=== PATIENT | male | born 1960 | race Caucasian/White ===

== ENCOUNTER 2024-11-20 13:58 | Outpatient (AMB) | payer OTHER, SELFPAY ==
[2024-11-20 14:06] VITALS: BP 122/76; PULSE 82; O2SAT 97; BMI 33.2
--- NOTE | 2024-11-20 14:06 | A.OFFVIS_ITS ---
Vital Signs 11/20/24 14:06 Height 5 ft 11 in Weight 238 lb 1.588 oz BMI 33.2 BP 122/76 Blood Pressure Location Rt brachial Position Sitting Pulse 82 Pulse Source Pulse Oximeter Pulse Oximetry (%) 97 Oxygen Delivery Method Room Air Intake Visit Reasons: Type 2 DM Intake Note: New patient externally referred by PCP for Diabetes management. Last Diabetic eye exam was on: 6 months ago Last Podiatry exam was on: Patient does not see a Lab Support Service Tech Most recent HbA1c: 6.6%, 11/17/2024 [facility] Random Glucose- 83 mg/dL, Today Back Roll Lathe Operator Required: No Accompanied by: Self / Same As Patient Allergies No Known Allergies Allergy (Verified 11/20/24 14:10) HPI Comments Details: This is a 64-year-old male with a past medical history of anxiety with depression, BPH, hypertension, hyperlipidemia, insomnia, obesity and type 2 diabetes presenting for an initial consult for diabetic management. He was diagnosed with prediabetes 6-7 years ago, and it progressed over time. His sister has prediabetes. His other sister has type II diabetes. I reviewed today's libre2 download: CGM active: 82% Average glucose: 128 Very high (>250): 1% High (181-250): 9% Target range (70-180): 90% Low (55-69): 0% Very low (<55): 0% Hemoglobin a1c 6.6% 11/17/2024 Current medication regimen: Glipizide ER 5 mg daily, Januvia 50 mg, metformin extended release a 1000 mg BID He received notification for his insurance that they will no longer cover Januvia. Ozempic discontinued due to stomach upset. Trulicity discontinued due to stomach upset. Compliance issues: none Diet: Breakfast-eggs, omelette with veggies, 1 piece of toast, low carb/low sugar cereal without milk, coffee with sugar free creamer Lunch-soup with vegetables, water Dinner- out to dinner twice per week, pasta, steak, salads, vegetables, seafood, Snacks/desserts: applesauce, sugar free wafer, yogurt No juice or soda Nonsmoker. Drinks 4 beers per week. Walks dog for exercise every other day. Hypoglycemia symptoms: 2 episodes in the last month. [place] shaky. Hyperglycemia symptoms: Fatigue in the past Eye exam: due-he will call to schedule Microvascular complications: Mild neuropathy Macrovascular complications: None Hypertension: treated with amlodipine and lisinopril Hyperlipidemia: treated with atorvastatin The patient mentions that he discontinued tamsulosin because it did not help with nocturia related to BPH. He does not have a urologist currently, and he would like a referral to [facility]. This was completed for the patient today. ROS: Constitutional: No unexplained weight loss, fever, chills, fatigue or night sweats. Eyes: No vision changes, blurry vision, double vision Respiratory: No shortness of breath Cardiovascular: No chest pain Gastrointestinal: No anorexia, nausea, vomiting or diarrhea. No abdominal pain Genitourinary: No dysuria and hematuria. Neurologic: No numbness or tingling in the extremities. Skin: No open wounds Endocrine: No cold or heat intolerance. No polydipsia. Physical exam: Constitutional: Alert, in no distress. Eyes: Pupils are equal, round and reactive to light. Extraocular muscles intact. Neck: Supple, Full range of motion. No lymphadenopathy. No palpable thyroid masses. Respiratory: Clear to auscultation. Cardiovascular: S1 S2 regular. No murmurs Right foot: Warm and well perfused. No clubbing, cyanosis or edema. Palpable DP pulse. Mildly Decreased vibratory sensation. Intact sensation to monofilament. Left foot: Warm and well perfused. No clubbing, cyanosis or edema. Palpable DP pulse. Mildly Decreased vibratory sensation. Intact sensation to monofilament. [facility] Medical History (Updated 11/20/24 @ 15:12 by NENO Crook) Obesity Hyperlipidemia Hypertension BPH (benign prostatic hyperplasia) Controlled type 2 diabetes mellitus Surgical History (Updated 11/19/24 @ 17:10 by LAYLA Arias) History of colonoscopy Family History (Updated 11/19/24 @ 17:11 by LAYLA Arias) Father Cancer of unknown origin Social History (Updated 11/19/24 @ 17:11 by Sahbnam Roberts Abraham) Alcohol intake: current Patient Tobacco Use Status: Never used Tobacco Physical Exam Vital Signs: BMI result Body Mass Index 33.2 Results Reviewed Results Reviewed: Reviewed external labs dated 11/17/2024 Creatinine 0.62 GFR 107 AST 28 ALT 25 Total cholesterol 199 Triglycerides 140 HDL 52 LDL 122 Hemoglobin A1c 6.6% TSH 1.130 Creatinine, urine 76.6 Albumin, urine 19.5 Albumin/creatinine ratio 25 Assessment & Plan Assessment & Plan (1) Controlled type 2 diabetes mellitus: Code(s): E11.9 - Type 2 diabetes mellitus without complications Category: Medical Qualifiers: Diabetes mellitus care home insulin use: without termination clerk use Plan: In summary this is a 64-year-old male with controlled type 2 diabetes with mild neuropathy. Discussed pathophysiology of Type II Diabetes Mellitus with the patient in detail.? I explained the termination clerk risks and complications associated with uncontrolled diabetes including nephropathy, neuropathy, peripheral vascular disease, retinopathy, increased risk of heart disease and stroke.? Discussed lifestyle modification with the patient. Recommended 30 minutes of moderately vigorous exercise 5 days per week to promote weight loss. He declines referral to the videotape editor and dietitian. Patient was informed Januvia is no longer covered by insurance. Stop Januvia. He will try Mounjaro 2.5 mg weekly. He denies contraindications to the medications. We reviewed potential side effects since he had side effects on GLP 1 medication in the past. If he is unable to tolerate it he will notify the office. Continue glipizide 5 mg ER for now. Ultimately our goal will be to titrate Mounjaro in order to stop glipizide. Continue metformin 1000 mg twice daily. If you experience low blood sugar (<70), treat this by eating a chewable fruit candy like skittles or jelly beans (about 8 pieces), 4 ounces (1/2 cup) of fruit juice (not diet), 1 tablespoon of honey or 4 glucose tablets. If your blood sugar is under 50, take double the amount of one of the above. Recheck your blood sugar in 15 minutes. Odimax sensors sent to pharmacy for the patient. He will use the Odimax michael on his phone. Follow up in 4 weeks for diabetes. (2) Hypertension: Code(s): I10 - Essential (primary) hypertension Category: Medical Qualifiers: Hypertension type: primary hypertension Qualified Code(s): I10 - Essential (primary) hypertension Plan: Well-controlled. Continue current regimen. Recommended low-sodium diet and avoidance of caffeine. (3) Hyperlipidemia: Code(s): E78.5 - Hyperlipidemia, unspecified Category: Medical Qualifiers: Hyperlipidemia type: pure hypercholesterolemia Qualified Code(s): E78.0 0 - Pure hypercholesterolemia, unspecified Plan: LDL is above goal. Patient is actively working on lifestyle modifications. Patient says he is compliant with atorvastatin 80 mg daily. Recommended he discuss this with his primary care team and consider rechecking in 2-3 months. If his LDL remains above goal he could consider adding Zetia or switching to rosuvastatin. Plan Follow up in 4 weeks for type 2 diabetes. Orders: Referrals Urology Referral N40.0 - Benign prostatic hyperplasia without lower urinary tract symptoms Medications: New glucose (Dex4 Glucose) until blood sugar is >70 16 grams (4 x 4 gram) PO Q15M PRN 10 tabs 3RF hypoglycemia (hipoglucemia) tirzepatide (Mounjaro) for 4 weeks 2.5 mg (0.5 mL) subcut QWEEK 2 mL 1RF blood-glucose sensor (Phosphate TherapeuticsStyle Jaja 3 Sensor device) apply new sensor every 14 days 2 ea 11RF E11.9 - Type 2 diabetes mellitus without complications Patient Instructions: Stop Januvia. Start Mounjaro 2.5 mg weekly. Continue Metformin 1000 mg twice daily. Continue Glipizide 5 mg daily. If you experience low blood sugar (<70), treat this by eating a chewable fruit candy like skittles or jelly beans (about 8 pieces), 4 ounces (1/2 cup) of fruit juice (not diet), 1 tablespoon of honey or 4 glucose tablets. If your blood sugar is under 50, take double the amount of one of the above. Recheck your blood sugar in 15 minutes. Libre3 sensors were sent to the pharmacy and may require a prior authorization. Coding Level of Care Code New Pt Level 5 (17974) Complex EM visit Add On G2211 Diagnoses Controlled type 2 diabetes mellitus E11.9 Diabetes mellitus care home insulin use: without care home use Primary hypertension I10 Hypertension type: primary hypertension Pure hypercholesterolemia E78.00 Hyperlipidemia type: pure hypercholesterolemia Time Spent (min) 70 Comment Chart review, direct patient care, completing documentation
[2024-11-20 14:26] LABS: Glucose, Whole Blood 84 mg/dL (60-115)
--- OUTSIDE RECORDS SUMMARY | 2024-11-20 16:11 | XMS_ITS | Clinical Summary ---
Author Organization [facility] Address [address] [place] [address] Care Team Providers Care Director Business Development Name Role Phone Pcp, No Primary Care Provider Unavailabl e Allergies No known active allergies Medications Medication Sig Dispensed Refills Start Date End Date Status amLODIPine (NORVASC) 10 MG tablet Take 10 mg by mouth daily. 1 11/23/2015 Active atorvastatin (LIPITOR) 40 MG tablet Take 40 mg by mouth daily. 1 11/23/2015 Active citalopram (CeleXA) 20 MG tablet Take 30 mg by mouth daily. 1 11/23/2015 Active hydrochlorothiazide (HYDRODIURIL) 50 MG tablet Take 50 mg by mouth daily. 1 11/05/2015 Active lisinopril (PRINIVIL,ZeSTRIL) 40 MG tablet Take 80 mg by mouth daily. 1 11/23/2015 Active Active Problems Problem Noted Date Diagnosed Date Essential hypertension 01/11/2016 Hyperlipidemia 01/11/2016 Depression 01/11/2016 Pre-employment examination 01/11/2016 DAMIR on CPAP 01/11/2016 Social History Tobacco Use Types Packs/Day Years Used Date Smoking Tobacco: Never Smokeless Tobacco: Never Alcohol Use Standard Drinks/Week Comments Yes 2 (1 standard drink = 0.6 oz pur e alcohol) Sex and Gender Information Value Date Recorded Sex Assigned at Not on file Gender Identity Not on file Sexual Orientation Not on file Last Filed Vital Signs Vital Sign Reading Time Taken Comments Blood Pressure 110/60 01/11/2016 9:21 AM EDT Pulse 64 01/11/2016 9:21 AM EDT Temperature - - Respiratory Rate 12 01/11/2016 9:21 AM EDT Oxygen Saturation - - Inhaled Oxygen Concentration - - Weight 138 kg (305 lb) 01/11/2016 9:21 AM EDT Height 180.3 cm (5' 11 ) 01/11/2016 9:21 AM EDT Body Mass Index 42.54 01/11/2016 9:21 AM EDT Plan of Treatment Health Maintenance Due Date Last Done Comments Hepatitis C Virus Screening 1960 HIV Screening 02/09/1973 DTaP/Tdap/Td Vaccines (1 - Tdap) 02/09/1979 Pneumococcal Vaccines 50+ (1 of 1 - PCV) 02/09/2010 Zoster (Shingles) Vaccine (1 of 2) 02/09/2010 COVID-19 Vaccine ( - 2023-2 5 season) 2024 RSV Vaccine 60 years and old er and Patients (1 - 1-dose 75+ series) 02/09/2035 Hepatitis B Vaccines Aged Out No long er eligible based on patient's age to complete this topic Pneumococcal Vaccine: Pediat magdalena (0-5 Years) and At-Risk Patients (6 to 49 Years) Aged Out No longer eligible b ased on patient's age to complete this topic Care Teams Director Business Development Relationship Specialty Start Date End Date Pcp, No PCP - General General Medicine 01/06/16
--- OUTSIDE RECORDS SUMMARY | 2024-11-20 16:11 | XMS_ITS | Encounter Summary ---
Author Organization [facility] Address [address] [place] [address] Care Team Providers Care Sound Ranging Crewmember Name Role Phone Pcp, No Primary Care Provider Unavailabl e Encounter Details Date Type Department Care Team (Late st Contact Info) Description 01/11/2016 Scanned Document [address] [id number] Provider, Generic Social History Tobacco Use Types Packs/Day Years Used Date Smoking Tobacco: Never Smokeless Tobacco: Never Alcohol Use Standard Drinks/Week Comments Yes 2 (1 standard drink = 0.6 oz pur e alcohol) Sex and Gender Information Value Date Recorded Sex Assigned at Not on file Gender Identity Not on file Sexual Orientation Not on file documented as of this encounter Plan of Treatment Not on file documented as of this encounter Visit Diagnoses Not on filedocumented in this encounter Care Teams Sound Ranging Crewmember Relationship Specialty Start Date End Date Pcp, No PCP - General General Medicine 01/06/16 documented as of this encounter
== END 2024-11-20 15:01 | disposition home or self-care (01) ==
PROVIDERS: PCP Internal Medicine; Visit Provider Physician Assistant Medical
DX: E11.9 Type 2 diabetes mellitus without complications (principal); I10 Essential (primary) hypertension; E78.00 Pure hypercholesterolemia, unspecified

== ENCOUNTER → 2024-11-20 13:58 | Outpatient (BNVA) | payer OTHER, SELFPAY | PROVIDERS: PCP Internal Medicine; Visit Provider Physician Assistant Medical | DX: E11.40 Type 2 diabetes mellitus with diabetic neuropathy, unspecified (principal); I10 Essential (primary) hypertension; E78.00 Pure hypercholesterolemia, unspecified; N40.0 Benign prostatic hyperplasia without lower urinary tract symptoms; Z79.84 Long term (current) use of oral hypoglycemic drugs; Z79.899 Other long term (current) drug therapy | CPT/HCPCS: 82947 ==

== ENCOUNTER 2024-12-18 14:25 | Outpatient (AMB) | payer OTHER, SELFPAY ==
[2024-12-18 14:30] VITALS: PULSE 74; O2SAT 95; BMI 31.7
--- NOTE | 2024-12-18 14:30 | A.OFFVIS_ITS ---
Vital Signs 12/18/24 14:30 Height 5 ft 11 in Weight 227 lb 1.218 oz BMI 31.7 Blood Pressure Location Rt brachial Position Sitting Pulse 74 Pulse Source Pulse Oximeter Pulse Oximetry (%) 95 Oxygen Delivery Method Room Air Intake Visit Reasons: Type II diabetes Intake Note: Patient presents today for a follow-up on Type 2 Diabetes Mellitus: Last Diabetic eye exam was on: 6 months ago Last Podiatry exam was on: Patient does not see a Primary Health Organisation Manager Most recent HbA1c: 6.6%, 11/17/2024 [facility] Random Glucose- 136 mg/dL, Today Seniour Insight Manager Required: No Accompanied by: Self / Same As Patient Allergies No Known Allergies Allergy (Verified 11/20/24 14:10) HPI Comments Details: This is a 64-year-old male with a past medical history of anxiety with depression, BPH, hypertension, hyperlipidemia, insomnia, obesity and type 2 diabetes presenting for diabetic management. He was diagnosed with prediabetes 6-7 years ago, and it progressed over time. His sister has prediabetes. His other sister has type II diabetes. Reviewed Dexcom data GMI 6.3% Average glucose 126 mg/dL Coefficient of variation 24.9% 0% very high 7% high 93% in range No hypoglycemia. Hemoglobin a1c 6.6% 11/17/2024 Current medication regimen: Mounjaro 2.5 mg daily metformin extended release a 1000 mg BID Previous medication: Glipizide and Januvia discontinued after he started Mounjaro. Ozempic discontinued due to stomach upset. Trulicity discontinued due to stomach upset. Compliance issues: none Diet: Breakfast-eggs, omelette with veggies, 1 piece of toast, low carb/low sugar cereal without milk, coffee with sugar free creamer Lunch-soup with vegetables, water Dinner- out to dinner twice per week, pasta, steak, salads, vegetables, seafood, Snacks/desserts: applesauce, sugar free wafer, yogurt No juice or soda Nonsmoker. Drinks 4 beers per week. Walks dog for exercise every other day. Hypoglycemia symptoms: No hypoglycemia since he stopped glipizide. Hyperglycemia symptoms: None Eye exam: due-he will call to schedule Microvascular complications: Mild neuropathy Macrovascular complications: None Hypertension: treated with amlodipine and lisinopril Hyperlipidemia: treated with atorvastatin ROS: Constitutional: No unexplained weight loss, fever, chills, fatigue or night sweats. Eyes: No vision changes, blurry vision, double vision Respiratory: No shortness of breath Cardiovascular: No chest pain Gastrointestinal: No anorexia, nausea, vomiting or diarrhea. No abdominal pain Genitourinary: No dysuria and hematuria. Neurologic: No numbness or tingling in the extremities. Skin: No open wounds Endocrine: No cold or heat intolerance. No polydipsia. Physical exam: Constitutional: Alert, in no distress. Eyes: Pupils are equal, round and reactive to light. Extraocular muscles intact. Respiratory: Clear to auscultation. Cardiovascular: S1 S2 regular. No murmurs PFSH Medical History (Updated 12/18/24 @ 15:16 by NENO Crook) Obesity Hyperlipidemia Hypertension BPH (benign prostatic hyperplasia) Controlled type 2 diabetes mellitus Surgical History (Updated 11/19/24 @ 17:10 by LAYLA Arias) History of colonoscopy Family History (Updated 11/19/24 @ 17:11 by LAYLA Arias) Father Cancer of unknown origin Social History (Updated 11/19/24 @ 17:11 by LAYLA Arisa) Alcohol intake: current Patient Tobacco Use Status: Never used Tobacco Physical Exam Vital Signs: Last Vital Signs Pulse 74 12/18/24 14:30 Pulse Ox 95 12/18/24 14:30 Oxygen Delivery Method Room Air 12/18/24 14:30 BMI result Body Mass Index 31.7 Office Procedures Glucose Monitoring Details Details: See [facility] [address] - Glucose monitoring, continuous-physician I&R Procedure code (CPT) selection complete Results Reviewed Results Reviewed: Reviewed external labs dated 11/17/2024 Creatinine 0.62 GFR 107 AST 28 ALT 25 Total cholesterol 199 Triglycerides 140 HDL 52 LDL 122 Hemoglobin A1c 6.6% TSH 1.130 Creatinine, urine 76.6 Albumin, urine 19.5 Albumin/creatinine ratio 25 Assessment & Plan Assessment & Plan (1) Controlled type 2 diabetes mellitus: Code(s): E11.9 - Type 2 diabetes mellitus without complications Category: Medical Qualifiers: Diabetes mellitus residential insulin use: without residential use Diabetes mellitus complication status: with neurologic complications Diabetes mellitus complication detail: with polyneuropathy Qualified Code(s): E11.42 - Type 2 diabetes mellitus with diabetic polyneuropathy Plan: In summary this is a 64-year-old male with controlled type 2 diabetes with mild neuropathy. Discussed pathophysiology of Type II Diabetes Mellitus with the patient in detail.? I explained the residential risks and complications associated with uncontrolled diabetes including nephropathy, neuropathy, peripheral vascular disease, retinopathy, increased risk of heart disease and stroke.? Discussed lifestyle modification with the patient. Recommended 30 minutes of moderately vigorous exercise 5 days per week to promote weight loss. Offer trial increase of Mounjaro to 5 mg weekly and decreasing metformin to 1500 mg a day. He defers for now, but he will consider this in the future. Continue Mounjaro 2.5 mg weekly and metformin extended release 1000 mg twice daily. If you experience low blood sugar (<70), treat this by eating a chewable fruit candy like skittles or jelly beans (about 8 pieces), 4 ounces (1/2 cup) of fruit juice (not diet), 1 tablespoon of honey or 4 glucose tablets. If your blood sugar is under 55, take double the amount of one of the above. Recheck your blood sugar in 15 minutes. Follow up in 3 months for type 2 diabetes (2) Hyperlipidemia: Code(s): E78.5 - Hyperlipidemia, unspecified Category: Medical Qualifiers: Hyperlipidemia type: pure hypercholesterolemia Qualified Code(s): E78.00 - Pure hypercholesterolemia, unspecified Plan: LDL is above goal. Patient is actively working on lifestyle modifications. Patient says he is compliant with atorvastatin 80 mg daily. Recheck in 2-3 months. If his LDL remains above goal he could consider adding Zetia or switching to rosuvastatin. Orders: Orders Basic Metabolic Panel 01/21/25 E11.9 - Type 2 diabetes mellitus without complications Hemoglobin A1c 01/21/25 E11.9 - Type 2 diabetes mellitus without complications Lipid Panel 01/21/25 E78.5 - Hyperlipidemia, unspecified Vitamin B12 01/21/25 E11.9 - Type 2 diabetes mellitus without complications, Z91.89 - Other specified personal risk factors, not elsewhere classified AMB Glucose Monitoring Today E11.9 - Type 2 diabetes mellitus without complications Coding Level of Care Code Est Pt Level 4 (10572) Diagnoses Controlled type 2 diabetes mellitus with diabetic polyneuropathy, without long- term current use of insulin E11.42 Diabetes mellitus residential insulin use: without residential use Diabetes mellitus complication status: with neurologic complications Diabetes mellitus complication detail: with polyneuropathy Pure hypercholesterolemia E78.00 Hyperlipidemia type: pure hypercholesterolemia CPT Codes Details - CPT: 72597 - Glucose monitoring, continuous-physician I&R ([id number])
[2024-12-18 15:04] LABS: Glucose, Whole Blood 136 mg/dL (60-115)
== END 2024-12-18 15:11 | disposition home or self-care (01) ==
LOC: HO.ENCR 14:26
PROVIDERS: PCP Internal Medicine; Visit Provider Physician Assistant Medical
DX: E11.42 Type 2 diabetes mellitus with diabetic polyneuropathy (principal); E78.00 Pure hypercholesterolemia, unspecified

== ENCOUNTER → 2024-12-18 14:25 | Outpatient (BNVA) | payer OTHER, SELFPAY | PROVIDERS: PCP Internal Medicine; Visit Provider Physician Assistant Medical | DX: E11.42 Type 2 diabetes mellitus with diabetic polyneuropathy (principal); I10 Essential (primary) hypertension; E78.00 Pure hypercholesterolemia, unspecified; Z79.84 Long term (current) use of oral hypoglycemic drugs; Z91.89 Other specified personal risk factors, not elsewhere classified; Z79.899 Other long term (current) drug therapy | CPT/HCPCS: 82947 ==

== ENCOUNTER 2025-01-14 14:34 | Outpatient (AMB) | payer OTHER, SELFPAY ==
--- NOTE | 2025-01-14 14:51 | A.OFFVIS_ITS ---
Intake Visit Reasons: BPH Intake Note: New Patient presents for initial visit for BPH and urinary frequency Urology Medications: none Blood Thinner: none PVR: 76ml's Finisher Special Stocks Required: No Accompanied by: Self / Same As Patient Allergies No Known Allergies Allergy (Verified 01/14/25 16:50) Medication List - Last Reconciled 01/14/25 by TAWNY Sharp- amlodipine 10 mg PO DAILY atorvastatin 80 mg PO DAILY blood-glucose sensor (Dexcom G7 Sensor device) apply new sensor every 10 days as directed citalopram 10 mg PO DAILY glucose (Dex4 Glucose) 16 grams (4 x 4 gram) PO Q15M PRN lisinopril 40 mg PO DAILY metformin ER 1,000 mg PO BID tirzepatide (Mounjaro) 2.5 mg (0.5 mL) subcut QWEEK HPI Comments Details: Danny is a very pleasant 64-year-old male patient of Dr. Fausto Benitez. He has a past medical history of obesity, hypertension, type 2 diabetes, hyperlipidemia and BPH. He presents to the office today as a new patient for ongoing lower urinary tract symptoms he has been experiencing. In discussion with the patient today he reports a previous urological history with Dr. Annamarie Blackwell for many years as he has had a longstanding history of nephrolithiasis requiring 1 past surgical intervention however is unsure as to what kidney. He reports noting over the last few months he has been experiencing issues with nocturia at which time he started himself on OTC prostate health medication and feels this has been helpful he reports symptoms of nocturia have decreased to approximately 2 times per night. He also reports at times feeling of incomplete bladder emptying. He otherwise denies urinary urgency, urinary frequency, incontinence, hematuria, dysuria, foul smelling urine, changes to urinary stream, flank pain, fever, and or chills. He reports feeling ever since he has started his DEX-com for his diabetes this has been helpful in maintaining better sugar control which has overall helped him. In office urinalysis results reviewed with the patient today. PVR 76 mL. He discusses upcoming trip to [facility]. We discussed at length potential causes of lower urinary tract symptoms patient was experiencing as well as further treatment options and risks and benefits of these treatment options. All questions were answered. He otherwise offers no other issues or concerns at this time. Discussion Notes During the consultation, I discussed with the patient the potential diagnosis of Benign Prostatic Hyperplasia (BPH) and its impact on urinary symptoms. I recommended obtaining a baseline imaging study, specifically an ultrasound of the kidneys and bladder to assess the size of the prostate and examine the kidneys given the patient?s history of nephrolithiasis. I also proposed conducting blood work to monitor general health and evaluate prostate-specific antigens. The patient was informed about the potential need for medication if prostate enlargement continues and alternative surgical interventions if symptoms worsen. I emphasized a proactive approach to manage BPH and avoid complications. The patient agreed to the planned studies and follow-up in three months. We also discussed his upcoming travel plans to [facility] and agreed to align future appointments accordingly. Plan The patient's management will involve an ultrasound to evaluate the extent of prostate enlargement and assess renal health, especially given his past kidney stone history. Blood work will be part of this assessment to ensure a comprehensive understanding of his urological health. The use of current prostate medication will continue unless further enlargement is detected, necessitating an adapted approach, such as surgical intervention. Follow-up arranged in three months will allow for results discussion and treatment adjustment. PENDING SALE TO [facility] Medical History Obesity Hyperlipidemia Hypertension BPH (benign prostatic hyperplasia) Controlled type 2 diabetes mellitus Surgical History History of colonoscopy Family History Father Cancer of unknown origin Social History Alcohol intake: current Patient Tobacco Use Status: Never used Tobacco Review of Systems Const All systems reviewed & are unremarkable except as noted in HPI and below Physical Exam Const General: cooperative, healthy appearing, comfortable, no acute distress, well developed, alert and awake Orientation/consciousness: patient oriented x3 Limitations: no limitations HEENT Head: Yes normal to inspection, Yes normocephalic and Yes atraumatic Ears: hearing grossly normal bilaterally Eyes General: appearance normal, both eyes and all related structures Neck Neck: Yes normal visual inspection and Yes trachea midline Chest Chest palpation & inspection: normal inspection of the chest Resp Effort & Inspection: normal respiratory effort and able to speak in complete sentences Cardio Rate: regular rate GI Inspection: Yes normal to inspection General: Yes no CVA tenderness Back/Spine/Pelvis Back: no CVA tenderness Skin General skin exam: no rashes or lesions noted Neuro General: patient oriented x3 Extrem General: Yes normal to inspection Psych Appearance: grossly normal and well kempt Mental Status: mental status grossly normal Speech and movement: Normal speech and movement present and Clear speech present Affect: normal affect Attitude: cooperative Thought process: Normal thought process present Thought content: Normal thought content present Insight: Fair insight present (Psych) Judgement: Fair judgement present (Psych) Office Procedures Post Void Residual Post Residual Void Post Void Residual (PVR): 76 [id number] Void Residual by ultrasound Results AMB Urinalysis, Automated UA Leukoctes 0 Roshni/uL Last Edit by [employer] on 01/14/25 15:06 UA Nitrite Last Edit by [employer] on 01/14/25 15:06 UA Urobilinogen 0.2 mg/dL Last Edit by [employer] on 01/14/25 15:06 UA Protein 15 mg/dL Last Edit by [employer] on 01/14/25 15:06 UA pH 6.5 Last Edit by [employer] on 01/14/25 15:06 UA Blood 0 Edy/uL Last Edit by [employer] on 01/14/25 15:06 UA Specific Kingsbury 1.015 Last Edit by [employer] on 01/14/25 15:06 UA Ketone Last Edit by [employer] on 01/14/25 15:06 UA Bilirubin 0 mg/dL Last Edit by [employer] on 01/14/25 15:06 UA Glucose 0 mg/dL Last Edit by [employer] on 01/14/25 15:06 Results Reviewed Results Reviewed: Laboratory Last Values Urine pH (Auto) 6.5 01/14/25 15:05 Specific [place] (Auto) 1.015 01/14/25 15:05 Urine Protein (Auto) 15 mg/dL 01/14/25 15:05 Glucose (UA)(Auto) 0 mg/dL 01/14/25 15:05 Urine Blood (Auto) 0 Edy/uL 01/14/25 15:05 Urine Bilirubin (Auto) 0 mg/dL 01/14/25 15:05 Urine Urobilinogen (Auto) 0.2 mg/dL 01/14/25 15:05 Leukocyte Esterase (Auto) 0 Roshni/uL 01/14/25 15:05 Assessment & Plan Assessment & Plan (1) BPH (benign prostatic hyperplasia): Code(s): N40.0 - Benign prostatic hyperplasia without lower urinary tract symptoms Category: Medical (2) Nocturia: Code(s): R35.1 - Nocturia Category: Medical (3) Nephrolithiasis: Code(s): N20.0 - Calculus of kidney Category: Medical Plan In office urinalysis results reviewed with the patient today; as noted above. PVR 74 mL. We discussed obtaining retroperitoneal ultrasound for further assessment evaluation. We discussed obtaining PSA for further assessment evaluation. We discussed at length potential causes of lower urinary tract symptoms patient was experiencing as well as treatment options and risks and benefits of these treatment options. We discussed importance of management and diabetes for improvement in urological issues as well as overall health and well being. We discussed importance of limiting fluids 2-3 hours prior to bed to decrease episodes of nocturia. We discussed bladder triggers/irritants. Follow-up in 3 months with imaging, labs, and PVR; or sooner with any issues, concerns, and or questions. Orders: Orders US retroperitoneal comp Today N40.0 - Benign prostatic hyperplasia without lower urinary tract symptoms, R35.1 - Nocturia Prostate Specific Antigen Today N40.0 - Benign prostatic hyperplasia without lower urinary tract symptoms, R35.1 - Nocturia AMB Urinalysis Automated Today Z13.9 - Encounter for screening, unspecified AMB Post Void Residual by ultrasound Today N40.0 - Benign prostatic hyperplasia without lower urinary tract symptoms Patient Instructions: The patient had an opportunity to ask questions regarding the treatment plan. All questions were answered. Physical exam, labs, and imaging were discussed and reviewed in detail. As well as risks, benefits, and discussion of treatment choices. No major barriers to understanding were identified. The patient e xpressed understanding and agreement with the above treatment plan. The patient was made aware they should contact our office by phone for worsening of their current condition, the appearance of new symptoms, or with any questions or concerns. Compliance is encouraged with any medications and follow up testing that is ordered. It is a privilege to be allowed the opportunity to participate in? your urological care.? Again, if you have any questions or concerns If you have any questions or concerns please do not hesitate to contact me. The office is [phone]. This note is constructed using voice recognition software. While every effort has been made to ensure accuracy electric meter repairer helper errors may have been included. Yours sincerely, VALERIA Sharp Coding Level of Care Code New Pt Level 3 (82669) Diagnoses BPH (benign prostatic hyperplasia) N40.0 Nocturia R35.1 Nephrolithiasis N20.0 CPT Codes Post Residual Void - PVR CPT Code: 28537-Szdw Void Residual by ultrasound ([id number])
--- OUTSIDE RECORDS SUMMARY | 2025-01-14 17:11 | XMS_ITS | Clinical Summary ---
Author Organization Formerly [facility] Address [address] [place] [address] Care Team Providers Care Epic Manager Name Role Phone Pcp, No Primary Care Provider Unavailabl e Allergies No known active allergies Medications amLODIPine (NORVASC) 10 MG tablet Take 10 mg by mouth daily. 1 11/23/2015 Active atorvastatin (LIPITOR) 40 MG tablet Take 40 mg by mouth daily. 1 11/23/2015 Active citalopram (CeleXA) 20 MG tablet Take 30 mg by mouth daily. 1 11/23/2015 Active hydrochlorothiaz gio (HYDRODIURIL) 50 MG tablet Take 50 mg by mouth daily. 1 11/05/2015 Active lisinopril (PRINIVIL,ZeSTRI L) 40 MG tablet Take 80 mg by [...] Recorded Sex Assigned at Not on file Legal Sex Male 9:11 AM EDT Gender Identity Not on file Sexual Orientation [...] age to complete this topic Care Teams Epic Manager Relationship Specialty Start Date End Date Pcp, No PCP - General General Medicine 01/06/16
--- OUTSIDE RECORDS SUMMARY | 2025-01-14 17:11 | XMS_ITS | Encounter Summary ---
Author Organization [facility] Address [address] [place] [id number] Care Team Providers Care Hospitality Ambassador Name Role Phone Pcp, No Primary Care Provider Unavailabl e Encounter Details Date Type Department Care Team (Late st Contact Info) Description 01/11/2016 Scanned Document [address] [id number] Provider, Generic Social History Tobacco Use Types [...] on filedocumented in this encounter Care Teams Hospitality Ambassador Relationship Specialty Start Date End Date Pcp, No PCP - General General Medicine 01/06/16 documented as of this encounter
== END 2025-01-14 15:25 | disposition home or self-care (01) ==
LOC: HO.HUSH 14:35
PROVIDERS: PCP Internal Medicine; Visit Provider Nurse Practitioner Family
DX: N40.0 Benign prostatic hyperplasia without lower urinary tract symptoms (principal); R35.1 Nocturia; N20.0 Calculus of kidney; Z13.9 Encounter for screening, unspecified
CPT/HCPCS: 99203

== ENCOUNTER → 2025-01-14 14:34 | Outpatient (BNVA) | payer OTHER, SELFPAY | PROVIDERS: PCP Internal Medicine; Visit Provider Nurse Practitioner Family | DX: N40.1 Benign prostatic hyperplasia with lower urinary tract symptoms (principal); R35.1 Nocturia; N20.0 Calculus of kidney | CPT/HCPCS: 51798; 81003 ==

== ENCOUNTER 2025-02-01 11:29 | Outpatient (REF) | payer OTHER, SELFPAY ==
--- OUTSIDE RECORDS SUMMARY | 2025-02-01 12:19 | XMS_ITS | Encounter Summary ---
Author Organization Formerly [facility] Address [address] [place] [id number] Care Team Providers Care Web Press Operator Helper Offset Name Role Phone Pcp, No Primary Care Provider Unavailabl e Encounter Details Date Type Department Care Team (Late st Contact Info) Description 01/11/2016 Scanned Document [address] [phone] Provider, Generic Social History Tobacco Use Types [...] on filedocumented in this encounter Care Teams Web Press Operator Helper Offset Relationship Specialty Start Date End Date Pcp, No PCP - General General Medicine 01/06/16 documented as of this encounter
--- OUTSIDE RECORDS SUMMARY | 2025-02-01 12:19 | XMS_ITS | Clinical Summary ---
Author Organization [facility] Address [address] [place] [address] Care Team Providers Care Weight Guesser Name Role Phone Pcp, No Primary Care [...] age to complete this topic Care Teams Weight Guesser Relationship Specialty Start Date End Date Pcp, No PCP - General General Medicine 01/06/16
[2025-02-01 14:32] LABS: Appearance Urine Clear; Color Urine Dark Yellow; Glucose Urine UA Negative (Negative); Leukocyte Esterase Urine Trace (Negative); Nitrite Urine Negative (Negative); PH 6.5 (5.0-9.0); UMIC TRIGGER UA YES; Urine Blood Large (3+) (Negative); Urine Ketones Trace mg/dL (Negative); Urine Protein Trace mg/dL (Neg-Trace)
[2025-02-01 14:36] LABS: Bacteria Urine None Seen (None Seen); Hyaline Casts Urine 0-2 /LPF (0-2); RBC Urine >20 /HPF (0-2); Squamous Epithelial Cell Urine 0-2 /HPF (0-2); WBC Urine 0-5 /HPF (0-5)
== END 2025-02-01 11:30 | disposition home or self-care (01) ==
LOC: HO.WFDLDS 11:29
PROVIDERS: Visit Provider Nurse Practitioner Family
DX: N20.0 Calculus of kidney (principal); N40.0 Benign prostatic hyperplasia without lower urinary tract symptoms
CPT/HCPCS: 81001; 87086

== ENCOUNTER 2025-02-02 13:49 | Outpatient (REF) | payer OTHER, SELFPAY ==
--- NOTE | ~2025-02-02 | US_ITS ---
EXAMINATION: US RETROPERITONEAL COMPLETE (RENAL) CLINICAL INFORMATION: Nocturia. COMPARISON: None available. TECHNIQUE: Real-time imaging of the kidneys and bladder. FINDINGS: RIGHT KIDNEY: 11 x 7 x 6 cm (SAG x AP x TRV). Normal echotexture. Normal renal cortical thickness. No hydronephrosis. Multiple focal less than 4 mm hyperechoic lesion at the cortical medullary junction. LEFT KIDNEY: 13 x 7 x 6 cm (SAG x AP x TRV). Normal echotexture. Normal renal cortical thickness. No hydronephrosis. There is an exophytic, 4.3 cm anechoic lesion with questionable peripheral calcification centered in the lower pole. There is a 4.4 cm anechoic lesion in the exophytic lower pole without nodular component. There are a few less than 3 mm hyperechoic lesions in the midportion BLADDER: Fluid-filled. Right-sided ureteral jet is present. The left is not identified. Prevoid bladder volume is 238 mL. Postvoid bladder volume is 87 mL. The prostate gland is heterogeneous and measures 6 x 4 x 5 cm with volume: 59 cc. US/US retroperitoneal comp IMPRESSION: Nonobstructing nephrolithiasis, bilaterally. Exophytic Bosniak type II cystic lesions, left kidney. Prominent heterogeneous prostate gland. 87 cc residual urine in a post void image. Electronically signed by: Boy Lubin MD 02/02/2025 02:50 PM EDT RP
--- OUTSIDE RECORDS SUMMARY | 2025-02-02 14:58 | XMS_ITS | Encounter Summary ---
Author Organization [facility] Address [address] [place] [id number] Care Team Providers Care Vegetable Sorter Name Role Phone Pcp, No Primary Care Provider Unavailabl e Encounter Details Date Type Department Care Team (Late st Contact Info) Description 01/11/2016 Scanned Document [address] [phone] Provider, Generic Social History Tobacco Use Types [...] on filedocumented in this encounter Care Teams Vegetable Sorter Relationship Specialty Start Date End Date Pcp, No PCP - General General Medicine 01/06/16 documented as of this encounter
--- OUTSIDE RECORDS SUMMARY | 2025-02-02 14:58 | XMS_ITS | Clinical Summary ---
Author Organization Formerly [facility] Address [address] [place] [address] Care Team Providers Care Tie Hacker Name Role Phone Pcp, No Primary Care [...] age to complete this topic Care Teams Tie Hacker Relationship Specialty Start Date End Date Pcp, No PCP - General General Medicine 01/06/16
== END 2025-02-02 13:50 | disposition home or self-care (01) ==
LOC: HO.US 13:49
PROVIDERS: Visit Provider Nurse Practitioner Family
DX: R35.1 Nocturia (principal); N40.0 Benign prostatic hyperplasia without lower urinary tract symptoms
CPT/HCPCS: 76770

== ENCOUNTER → 2025-02-02 13:52 | Outpatient (BNV) | payer OTHER, SELFPAY | PROVIDERS: Visit Provider Radiology Diagnostic Radiology | DX: N20.0 Calculus of kidney (principal); N28.1 Cyst of kidney, acquired; R39.14 Feeling of incomplete bladder emptying | CPT/HCPCS: 76770 ==

== ENCOUNTER 2025-03-16 10:55 | Outpatient (REF) | payer OTHER, SELFPAY ==
--- OUTSIDE RECORDS SUMMARY | 2025-03-16 12:27 | XMS_ITS | Clinical Summary ---
Author Organization [facility] Address [address] [place] [address] Care Team Providers Care Insurance Policy Issue Clerk Name Role Phone Pcp, No Primary Care [...] age to complete this topic Care Teams Insurance Policy Issue Clerk Relationship Specialty Start Date End Date Pcp, No PCP - General General Medicine 01/06/16
[2025-03-16 14:33] LABS: Anion Gap 12 (12-20); Blood Urea Nitrogen 14 mg/dL (9-16); Calcium 9.4 mg/dL (8.4-10.2); Carbon Dioxide 27 mmol/L (22-29); Chloride 105 mmol/L (96-108); Cholesterol 167 mg/dL (<200); Estimated Glomerular Filt Rate > 60; Glucose Random 112 mg/dL (60-115); HDL Cholesterol 46 mg/dL (>40); LDL Cholesterol Calculated 103 mg/dL (<100); Potassium 3.3 mmol/L (3.3-5.1); Sodium 141 mmol/L (135-145); Triglycerides 92 mg/dL (<150)
[2025-03-16 14:43] LABS: Estimated Average Glucose 117 mg/dL; Hemoglobin A1C 150.3347 umol/L; Hemoglobin A1c % 5.7 % (<6.0)
[2025-03-16 14:48] LABS: Prostate Specific Antigen 2.69 ng/mL (<0.05-4.0)
[2025-03-16 14:58] LABS: Vitamin B12 336 pg/mL (200-900)
== END 2025-03-16 10:56 | disposition home or self-care (01) ==
LOC: HO.WFDLDS 10:55
PROVIDERS: Referring Provider Nurse Practitioner Family; Visit Provider Physician Assistant Medical
DX: R35.1 Nocturia (principal); N40.0 Benign prostatic hyperplasia without lower urinary tract symptoms; Z91.89 Other specified personal risk factors, not elsewhere classified; E78.5 Hyperlipidemia, unspecified; E11.9 Type 2 diabetes mellitus without complications; Z12.5 Encounter for screening for malignant neoplasm of prostate
CPT/HCPCS: 36415; 80048; 80061; 82607; 83036; 84153

== ENCOUNTER 2025-03-19 12:55 | Outpatient (AMB) | payer OTHER, SELFPAY ==
--- NOTE | 2025-03-19 12:56 | MHC.OFFVIS ---
Vital Signs 03/19/25 12:59 Height 5 ft 11 in Weight 217 lb 2.485 oz BMI 30.3 BP 108/66 Blood Pressure Location Rt brachial Position Sitting Pulse 72 Pulse Source Pulse Oximeter Pulse Oximetry (%) 95 Oxygen Delivery Method Room Air Intake Visit Reasons: DM Intake Note: Patient present today to follow up on Type 2 Diabetes Mellitus. Last Diabetic Eye exam: Due, needs to make an appointment. Last Podiatry Visit: Does not see a Cook Pickled Meat Random Glucose: 160 mg/dl HgA1C: 5.7% 03/16/2025 Outside Sales Representative Required: No Accompanied by: Self / Same As Patient Allergies No Known Allergies Allergy (Verified 03/19/25 13:00) Medication List - Last Reconciled 03/19/25 by NENO Crook amlodipine 10 mg PO DAILY atorvastatin 80 mg PO DAILY blood-glucose sensor (Dexcom G7 Sensor device) apply new sensor every 10 days as directed citalopram 10 mg PO DAILY glucose (Dex4 Glucose) 16 grams (4 x 4 gram) PO Q15M PRN lisinopril 40 mg PO DAILY metformin ER 1,000 mg PO DAILY tirzepatide (Mounjaro) 2.5 mg (0.5 mL) subcut QWEEK HPI Comments Details: This is a 64-year-old male with a past medical history of anxiety with depression, BPH, hypertension, hyperlipidemia, insomnia, obesity and type 2 diabetes presenting for diabetic management. He was diagnosed with prediabetes 6-7 years ago, and it progressed over time. His sister has prediabetes. His other sister has type II diabetes. Reviewed Dexcom download March 06 to March 19 GMI 6.8% Average glucose 146 Very high 30% High 14% 83% in range 0% low Patient has occasional postprandial hyperglycemia in the afternoon and evening. He reports 3 low sugars within the past week. Lowest sugar was in the 50s. Took a glucose tablet and it came up but then decreased again. He then had something to eat and it normalized. He felt shaky and hungry. Hemoglobin a1c 5.7% 03/16/2025. Current medication regimen: Mounjaro 2.5 mg daily metformin extended release a 1000 mg BID Previous medication: Glipizide and Januvia discontinued after he started Mounjaro. Ozempic discontinued due to stomach upset. Trulicity discontinued due to stomach upset. Compliance issues: none He is following a healthy diet and walking his dog daily for exercise. He lost an additional 10 lb since November. Hypoglycemia symptoms: See above Hyperglycemia symptoms: None Microvascular complications: Mild neuropathy Macrovascular complications: None Hypertension: treated with amlodipine and lisinopril. Blood pressure is soft today. He has been feeling some fatigue. Hyperlipidemia: treated with atorvastatin. LDL cholesterol decreased from 122-103. ROS: Constitutional: No unexplained weight loss, fever, chills or night sweats. Eyes: No vision changes, blurry vision, double vision Respiratory: No shortness of breath Cardiovascular: No chest pain Gastrointestinal: No anorexia, nausea, vomiting or diarrhea. No abdominal pain Genitourinary: No dysuria and hematuria. Neurologic: No numbness or tingling in the extremities. Skin: No open wounds Endocrine: No cold or heat intolerance. No polydipsia. Physical exam: Constitutional: Alert, in no distress. Eyes: Pupils are equal, round and reactive to light. Extraocular muscles intact. Respiratory: Clear to auscultation. Cardiovascular: S1 S2 regular. No murmurs PFSH Medical History Obesity Hyperlipidemia Hypertension BPH (benign prostatic hyperplasia) Controlled type 2 diabetes mellitus Surgical History History of colonoscopy Family History Father Cancer of unknown origin Social History Alcohol intake: current Patient Tobacco Use Status: Never used Tobacco Physical Exam Vital Signs: Last Vital Signs Pulse 72 03/19/25 12:59 BP 108/66 03/19/25 12:59 Pulse Ox 95 03/19/25 12:59 Oxygen Delivery Method Room Air 03/19/25 12:59 BMI result Body Mass Index 30.3 Office Procedures Glucose Monitoring Details Details: See [facility] [address] - Glucose monitoring, continuous-physician I&R Procedure code (CPT) selection complete Results Reviewed Results Reviewed: Laboratory Tests 03/16/25 10:57 Creatinine 0.59 Estimated GFR > 60 Hemoglobin A1c % 5.7 Triglycerides 92 Cholesterol 167 LDL Cholesterol, Calc 103 H HDL Cholesterol 46 Vitamin B12 336 Assessment & Plan Assessment & Plan (1) Controlled type 2 diabetes mellitus: Code(s): E11.9 - Type 2 diabetes mellitus without complications Category: Medical Qualifiers: Diabetes mellitus skilled nursing insulin use: without skilled nursing use Diabetes mellitus complication status: with neurologic complications Diabetes mellitus complication detail: with polyneuropathy Qualified Code(s): E11.42 - Type 2 diabetes mellitus with diabetic polyneuropathy Plan: In summary this is a 64-year-old male with controlled type 2 diabetes with mild neuropathy. Discussed pathophysiology of Type II Diabetes Mellitus with the patient in detail.? I explained the skilled nursing risks and complications associated with uncontrolled diabetes including nephropathy, neuropathy, peripheral vascular disease, retinopathy, increased risk of heart disease and stroke.? Discussed lifestyle modification with the patient. Recommended 30 minutes of moderately vigorous exercise 5 days per week to promote weight loss. Continue Mounjaro 2.5 mg weekly. Reduce metformin extended release to 1000 mg once daily. Continue Mounjaro 2.5 mg weekly and metformin extended release 1000 mg twice daily. Reviewed proper treatment for hypoglycemia and provided written instructions to the patient. If you experience low blood sugar (<70), treat this by eating a chewable fruit candy like skittles or jelly beans (about 8 pieces), 4 ounces (1/2 cup) of fruit juice (not diet), 1 tablespoon of honey or 4 glucose tablets. If your blood sugar is under 55, take double the amount of one of the above. Recheck your blood sugar in 15 minutes. Follow up in 3 months for type 2 diabetes (2) Hyperlipidemia: Code(s): E78.5 - Hyperlipidemia, unspecified Category: Medical Qualifiers: Hyperlipidemia type: pure hypercholesterolemia Qualified Code(s): E78.00 - Pure hypercholesterolemia, unspecified Plan: Suboptimal but improved LDL. Patient is actively working on lifestyle modifications and weight loss. Continue atorvastatin 80 mg daily. Target LDL less than 100. (3) Hypertension: Code(s): I10 - Essential (primary) hypertension Category: Medical Qualifiers: Hypertension type: primary hypertension Qualified Code(s): I10 - Essential (primary) hypertension Plan: Reduce amlodipine from 10 mg to 5 mg daily. Continue lisinopril 40 mg daily. Plan Follow up in 3 months for type 2 diabetes. Orders: Orders AMB Glucose Monitoring Today E11.9 - Type 2 diabetes mellitus without complications Medications: New amlodipine 5 mg PO DAILY 90 tabs 1RF Refilled tirzepatide (Mounjaro) 2.5 mg (0.5 mL) subcut QWEEK 2 mL 3RF Patient Instructions: Decrease amlodipine to 5 mg daily Decrease Metformin to 1000 mg in the morning. Continue Mounjaro 2.5 mg weekly If you experience low blood sugar (<70), treat this by eating a chewable fruit candy like skittles or jelly beans (about 8 pieces), 4 ounces (1/2 cup) of fruit juice (not diet), 1 tablespoon of honey or 4 glucose tablets. If your blood sugar is under 55, take double the amount of one of the above. Recheck your blood sugar in 15 minutes. Coding Level of Care Code Est Pt Level 4 (03212) Diagnoses Controlled type 2 diabetes mellitus with diabetic polyneuropathy, without long-term current use of insulin E11.42 Diabetes mellitus continuous churn buttermaker insulin use: without skilled nursing use Diabetes mellitus complication status: with neurologic complications Diabetes mellitus complication detail: with polyneuropathy Pure hypercholesterolemia E78.00 Hyperlipidemia type: pure hypercholesterolemia Primary hypertension I10 Hypertension type: primary hypertension CPT Codes Details - CPT: 59620 - Glucose monitoring, continuous-physician I&R ([id number])
[2025-03-19 12:59] VITALS: BP 108/66; PULSE 72; O2SAT 95; BMI 30.3
[2025-03-19 13:17] LABS: Glucose, Whole Blood 160 mg/dL (60-115)
--- OUTSIDE RECORDS SUMMARY | 2025-03-19 13:32 | XMS_ITS | Clinical Summary ---
Author Organization [facility] Address [address] [place] [address] Care Team Providers Care Repairer Engine Production Name Role Phone Pcp, No Primary Care [...] age to complete this topic Care Teams Repairer Engine Production Relationship Specialty Start Date End Date Pcp, No PCP - General General Medicine 01/06/16
== END 2025-03-19 13:31 | disposition home or self-care (01) ==
LOC: HO.ENCR 12:55
PROVIDERS: PCP Internal Medicine; Visit Provider Physician Assistant Medical
DX: E11.42 Type 2 diabetes mellitus with diabetic polyneuropathy (principal); E78.00 Pure hypercholesterolemia, unspecified; I10 Essential (primary) hypertension

== ENCOUNTER → 2025-03-19 12:55 | Outpatient (BNVA) | payer OTHER, SELFPAY | PROVIDERS: PCP Internal Medicine; Visit Provider Physician Assistant Medical | DX: E11.42 Type 2 diabetes mellitus with diabetic polyneuropathy (principal) | CPT/HCPCS: 82947 ==

== ENCOUNTER 2025-06-18 13:03 | Outpatient (AMB) | payer OTHER, SELFPAY ==
[2025-06-18 13:06] VITALS: BP 128/82; PULSE 88; O2SAT 96; BMI 29.2
--- NOTE | 2025-06-18 13:06 | A.OFFVIS_ITS ---
Vital Signs 06/18/25 13:06 Height 5 ft 11 in Weight 209 lb 7.026 oz BMI 29.2 BP 128/82 Blood Pressure Location Rt brachial Position Sitting Pulse 88 Pulse Source Pulse Oximeter Pulse Oximetry (%) 96 Oxygen Delivery Method Room Air Intake Visit Reasons: Type II diabetes Intake Note: Patient present today to follow up on Type 2 Diabetes Mellitus. Last Diabetic Eye exam: Due, needs to make an appointment. Last Podiatry Visit: Does not see a Barrelhead Inspector Random Glucose: 105 mg/dL HgA1C: 5.8%, 06/18/2025 Student Life Advisor Required: No Allergies No Known Allergies Allergy (Verified 03/19/25 13:00) Medication List - Last Reconciled 06/18/25 by NENO Crook amlodipine 5 mg PO DAILY atorvastatin 80 mg PO DAILY blood-glucose sensor (Dexcom G7 Sensor device) apply new sensor every 10 days as directed citalopram 10 mg PO DAILY glucose (Dex4 Glucose) 16 grams (4 x 4 gram) PO Q15M PRN lisinopril 40 mg PO DAILY metformin ER 1,000 mg PO DAILY tirzepatide (Mounjaro) 2.5 mg (0.5 mL) subcut QWEEK HPI Comments Details: This is a 65-year-old male with a past medical history of anxiety with depression, BPH, hypertension, hyperlipidemia, insomnia, obesity and type 2 diabetes presenting for diabetic management. He was diagnosed with prediabetes 6-7 years ago, and it progressed over time. His sister has prediabetes. His other sister has type II diabetes. Reviewed Dexcom download 14 day G UT 7.1% and 90 day GMI 6.8% 4% very high 17% high 79% in range 0% hypoglycemia My interpretation is at the patient has occasional hypoglycemia mid day and in the evening. Otherwise his glucose readings are within target range. Patient says in the last couple weeks his fruit tree over produced, and he's been eating a lot of pear desserts. Hemoglobin a1c 06/18/25: 5.8% Current medication regimen: Mounjaro 2.5 mg daily metformin extended release a 1000 mg daily. He has occasional nausea on the medications. Previous medication: Glipizide and Januvia discontinued after he started Mounjaro. Ozempic discontinued due to stomach upset. Trulicity discontinued due to stomach upset. Compliance issues: none He is following a healthy diet and walking his dog daily for exercise. He lost 8 lb since his visit in February. Hypoglycemia symptoms: Hyperglycemia symptoms: None Microvascular complications: Mild neuropathy Macrovascular complications: None Hypertension: treated with amlodipine and lisinopril. Hyperlipidemia: treated with atorvastatin. Last LDL 103 with a goal of less than 100. Patient would like a referral to [facility] to transfer care for BPH and nocturia. Patient endorses decreased libido. No ED. He is on an SSRI. He would like testosterone checked. This is ordered. ROS: Constitutional: No unexplained weight loss, fever, chills or night sweats. Eyes: No vision changes, blurry vision, double vision Respiratory: No shortness of breath Cardiovascular: No chest pain Gastrointestinal: No anorexia, nausea, vomiting or diarrhea. No abdominal pain Genitourinary: No dysuria and hematuria. Neurologic: No numbness or tingling in the extremities. Skin: No open wounds Endocrine: No cold or heat intolerance. No polydipsia. Physical exam: Constitutional: Alert, in no distress. Eyes: Pupils are equal, round and reactive to light. Respiratory: Clear to auscultation. Cardiovascular: S1 S2 regular. No murmurs [facility] Medical History Obesity Hyperlipidemia Hypertension BPH (benign prostatic hyperplasia) Controlled type 2 diabetes mellitus Surgical History History of colonoscopy Family History Father Cancer of unknown origin Social History Alcohol intake: current Patient Tobacco Use Status: Never used Tobacco Physical Exam Vital Signs: Oxygen Delivery Method Room Air 06/18/25 13:06 BMI result Body Mass Index 29.2 Office Procedures Glucose Monitoring Details Details: see HPI Procedure code (CPT) selection complete Results AMB Hemoglobin A1c AMB Hemoglobin A1c 5.8 % Last Edit by LAYLA Edmond on 06/18/25 13:23 Results Reviewed Results Reviewed: Laboratory Tests 03/16/25 10:57 Creatinine 0.59 Estimated GFR > 60 Hemoglobin A1c % 5.7 Triglycerides 92 Cholesterol 167 LDL Cholesterol, Calc 103 H HDL Cholesterol 46 Vitamin B12 336 Assessment & Plan Assessment & Plan (1) Controlled type 2 diabetes mellitus: Code(s): E11.9 - Type 2 diabetes mellitus without complications Category: Medical Plan: In summary this is a 64-year-old male with controlled type 2 diabetes with mild neuropathy. Discussed pathophysiology of Type II Diabetes Mellitus with the patient in detail.? I explained the long term care phlebotomist risks and complications associated with uncontrolled diabetes including nephropathy, neuropathy, peripheral vascular disease, retinopathy, increased risk of heart disease and stroke.? Discussed lifestyle modification with the patient. Recommended 30 minutes of moderately vigorous exercise 5 days per week to promote weight loss. Continue Mounjaro 2.5 mg weekly. Reduce metformin extended release to 500 mg daily. He would like to try this to see if it reduces nausea on this combination of medications. Follow up in 3 months for type 2 diabetes (2) Hyperlipidemia: Code(s): E78.5 - Hyperlipidemia, unspecified Category: Medical Qualifiers: Hyperlipidemia type: pure hypercholesterolemia Qualified Code(s): E 78.00 - Pure hypercholesterolemia, unspecified Plan: Suboptimal but improved LDL. Patient is actively working on lifestyle modifications and weight loss. Continue atorvastatin 80 mg daily. Target LDL less than 100. Recheck labs prior to next visit. (3) Hypertension: Code(s): I10 - Essential (primary) hypertension Category: Medical Qualifiers: Hypertension type: primary hypertension Qualified Code(s): I10 - Essential (primary) hypertension Plan: Continue amlodipine and lisinopril. Plan Follow up in 3 months for type 2 diabetes. Orders: Orders Lipid Panel 3 Months E11.42 - Type 2 diabetes mellitus with diabetic polyneuropathy, E78.5 - Hyperlipidemia, unspecified AMB Hemoglobin A1c Today E11.42 - Type 2 diabetes mellitus with diabetic polyneuropathy AMB Glucose Monitoring Today E11.9 - Type 2 diabetes mellitus without complications Basic Metabolic Panel 3 Months E11.42 - Type 2 diabetes mellitus with diabetic polyneuropathy Hemoglobin A1c 3 Months E11.42 - Type 2 diabetes mellitus with diabetic po lyneuropathy, R73.9 - Hyperglycemia, unspecified Vitamin B12 3 Months E11.42 - Type 2 diabetes mellitus with diabetic polyneuropathy, Z91.89 - Other specified personal risk factors, not elsewhere classified Testosterone, Free/Total 3 Months E11.42 - Type 2 diabetes mellitus with diabetic polyneuropathy Referrals Urology Referral N40.0 - Benign prostatic hyperplasia without lower urinary tract symptoms, R35.1 - Nocturia Medications: Refilled tirzepatide (Mounjaro) 2.5 mg (0.5 mL) subcut QWEEK 2 mL 5RF Patient Instructions: Your hemoglobin a1c today is 5.8%. You can reduce Metformin ER to 500 mg once daily. Continue Mounjaro 2.5 mg weekly. If you experience low blood sugar, treat this by eating a chewable fruit candy like skittles or jelly beans (about 8 pieces), 4 ounces (1/2 cup) of fruit juice (not diet), 1 tablespoon of honey or 4 glucose tablets. If your blood sugar is under 50, take double the amount of one of the above. Recheck your blood sugar in 15 minutes. Coding Level of Care Code Est Pt Level 4 (56907) Diagnoses Controlled type 2 diabetes mellitus E11.9 Pure hypercholesterolemia E78.00 Hyperlipidemia type: pure hypercholesterolemia Primary hypertension I10 Hypertension type: primary hypertension
[2025-06-18 13:17] LABS: Glucose, Whole Blood 105 mg/dL (60-115)
--- OUTSIDE RECORDS SUMMARY | 2025-06-18 14:24 | XMS_ITS | Clinical Summary ---
Author Organization [facility] Address [address] [place] [address] Care Team Providers Care Flight Communications Officer Name Role Phone Pcp, No Primary Care [...] Health Maintenance Due Date Last Done Comments Advance Care Planning 1960 Hepatitis C Virus Screening 1960 HIV Screening 02/09/1973 DTaP/Tdap/Td Vaccines (1 - Tdap) 02/09/1979 Pneumococcal Vaccines 50+ (1 of 1 - PCV) 02/09/2010 Zoster (Shingles) Vaccine (1 of 2) 02/09/2010 COVID-19 Vaccine (1 - 2023-2 5 season) 2025 RSV Vaccine 60 years and old er and Patients (1 - 1-dose 75+ series) 02/09/2035 Hepatitis B Vaccines Aged Out No long er eligible based on patient's age to complete this topic Care Teams Flight Communications Officer Relationship Specialty Start Date End Date Pcp, No PCP - General General Medicine 01/06/16
--- OUTSIDE RECORDS SUMMARY | 2025-06-18 14:25 | XMS_ITS | Encounter Summary ---
Author Organization [facility] Address [address] [place] [id number] Care Team Providers Care Copy Machine Operator Name Role Phone Pcp, No Primary Care Provider Unavailabl e Encounter Details Date Type Department Care Team (Late st Contact Info) Description 01/11/2016 Scanned Document [address] [phone] Provider, Generic Social History Tobacco Use Types [...] on filedocumented in this encounter Care Teams Copy Machine Operator Relationship Specialty Start Date End Date Pcp, No PCP - General General Medicine 01/06/16 documented as of this encounter
--- OUTSIDE RECORDS SUMMARY | 2025-06-18 14:25 | XMS_ITS | Clinical Summary ---
Author Organization [facility] Address [address] [address] Phone Care Team Providers Care Door To Door Salesperson Name Role Phone Pcp, Unknown Primary Care Provider Unavailabl e Social History Tobacco Use Types Packs/Day Years Used Date Smoking Tobacco: Never Assessed Sex and Gender Information Value Date Recorded Sex Assigned at Not on file Legal Sex Male 3:03 PM EST Gender Identity Not on file Sexual Orientation Not on file Plan of Treatment Not on file Medical Devices Not on file Insurance [employer] [place] [id number] [employer] TOTAL CHOICE INDEMNITY [employer] TOTAL CHOICE INDEMNITY [employer] TOTAL CHOICE INDEMNITY [employer] TOTAL CHOICE [employer]DEMN[employer] TOTAL CHOICE [employer]DEMN[employer] TOTAL CHOICE INDEMNITY [employer] TOTAL CHOICE INDEMNITY [employer] [facility] TOTAL CHOICE INDEMNITY Care Teams Door To Door Salesperson Relationship Specialty Start Date End Date Pcp, Unknown PCP - General 10/28/17 Additional Source Comments The information contained in this document represents components of the legal health record. It is not the complete legal health record.[facility]
== END 2025-06-18 13:42 | disposition home or self-care (01) ==
LOC: HO.ENCR 13:04
PROVIDERS: PCP Internal Medicine; Visit Provider Physician Assistant Medical
DX: E11.42 Type 2 diabetes mellitus with diabetic polyneuropathy (principal); E78.00 Pure hypercholesterolemia, unspecified; I10 Essential (primary) hypertension

== ENCOUNTER → 2025-06-18 13:03 | Outpatient (BNVA) | payer OTHER, SELFPAY | PROVIDERS: PCP Internal Medicine; Visit Provider Physician Assistant Medical | DX: E11.9 Type 2 diabetes mellitus without complications (principal) | CPT/HCPCS: 82947; 83036 ==

== ENCOUNTER 2025-08-12 13:32 | Outpatient (AMB) | payer OTHER, SELFPAY ==
--- NOTE | 2025-08-12 13:31 | A.PHYSOV ---
Vital Signs 08/12/25 13:33 Height 5 ft 11 in Weight 201 lb BMI 28.0 Intake Visit Reasons: L Shoulder inj, left knee. Wanting both injected Intake Note: Patient is a 65 year old male here today for his left shoulder and left knee injection. Cycle Consultant Required: No Allergies No Known Allergies Allergy (Verified 08/12/25 13:32) [facility] Medical History (Updated 08/12/25 @ 16:57 by NENO Dubon) Hyperlipidemia Hypertension BPH (benign prostatic hyperplasia) Controlled type 2 diabetes mellitus Surgical History History of neck surgery (Unknown) H/O hernia repair (Unknown) History of colonoscopy Family History Father Cancer of unknown origin Social History Alcohol intake: current Patient Tobacco Use Status: Never used Tobacco Physical Exam Vital Signs: BMI result Body Mass Index 28.0 Office Procedures AMB Knee Injection AMB Knee Injection Procedure Details: Right Knee injection: The risks, benefits and complications of the right knee injection were discussed with the patient including but not limited to increased serum glucose, infection, nerve pain, fat atrophy, pigment augmentation, bleeding and pain. All questions were answered to the patient's satisfaction. Verbal consent was obtained. The patient was eager to proceed. Using aseptic technique with Betadine, ethyl chloride was then used to desensitize the skin. Using a 22-gauge needle 40 mg of Kenalog and 3 mL 2% lidocaine were injected into the knee joint. A Band-Aid was applied. Patient tolerated the procedure well without immediate complication. Postinjection instructions were given. Knee Injection - : Left All charges added?: Procedure code (CPT) selection complete AMB Shoulder Injection AMB Shoulder Injection Procedure Details: Left Glenohumeral joint injection: The patient was educated about risks, complications and benefits including but not limited to increased serum glucose, infection, nerve damage, bleeding, tendon/ligament damage and pain. We agree with a glenohumeral injection is the next best step in the treatment plan. Verbal consent was obtained. Using aseptic technique, the skin was cleansed with Betadine. Ethyl chloride was used to desensitize the skin. Using a posterior approach, 40 mg of Kenalog and 3 mL 2% lidocaine were injected using a 25-gauge inch and a half needle into the joint. The patient tolerated the procedure well without immediate complication. Postinjection instructions were given. Shoulder Injection - : Left All charges added?: Procedure code (CPT) selection complete Office Meds Kenalog 40 mg/mL suspension for injection Performing Provider: NENO Dubon Performing Location[facility] Administered by: NENO Dubon on 08/12/25 16:57 Dose Route Admin Location Dispensed Lot Number Expiration Date [facility] Bulk Sealer 40 mg intra-articular 1 mL [id number] [employer] Total Dispensed Waste 1 mL 0 % lidocaine (PF) 20 mg/mL (2 %) injection solution Performing Provider: NENO Dubon Performing Location: [facility] Administered by: NENO Dubon on 08/12/25 16:57 Dose Route Admin Location Dispensed Lot Number Expiration Date [facility] Bulk Sealer 60 mg intra-articular 50 mL [id number] Total Dispensed Waste 50 mL 0 % Kenalog 40 mg/mL suspension for injection Performing Provider: NENO Dubon Performing Location: [facility] Administered by: NENO Dubon on 08/12/25 16:59 Dose Route Admin Location Dispensed Lot Number Expiration Date [facility] Bulk Sealer 40 mg intra-articular 1 mL [id number] [employer] Total Dispensed Waste 1 mL 0 % lidocaine (PF) 20 mg/mL (2 %) injection solution Performing Provider: NENO Dubon Performing Location: [facility] Administered by: NENO Dubon on 08/12/25 16:59 Dose Route Admin Location Dispensed Lot Number Expiration Date [facility] Bulk Sealer 60 mg intra-articular 50 mL [id number] Total Dispensed Waste 50 mL 0 % Assessment & Plan Assessment & Plan (1) Osteoarthritis of left knee: Code(s): M17.12 - Unilateral primary osteoarthritis, left knee Category: Medical Qualifiers: Osteoarthritis type: primary Qualified Code(s): M17.12 - Unilateral primary osteoarthritis, left knee (2) Primary osteoarthritis, left shoulder: Code(s): M19.012 - Primary osteoarthritis, left shoulder Category: Medical Plan Mr. Etienne is a 65-year-old male seen in evaluation today for left shoulder and knee osteoarthritis. Today he consented to corticosteroid injection of both joints. He was given post-injection instructions, recommend: Moist heat compresses for 15 minutes to 5 times daily. Continue low-impact activities such as walking, biking swimming. He should avoid repetitive overhead activities. He will monitor his blood sugar daily, had elevated contact his primary care physician. Follow-up with our office as needed. Thank you for allowing me to participate in the care of your patient. Orders: Orders AMB Knee Injection Today M17.12 - Unilateral primary osteoarthritis, left knee AMB Shoulder Injection Today M19.012 - Primary osteoarthritis, left shoulder Coding Level of Care Code Procedure Only Diagnoses Primary osteoarthritis of left knee M17.12 Osteoarthritis type: primary Primary osteoarthritis, left shoulder M19.012 CPT Codes AMB Knee Injection - Hip/Bursa Injection - 06263: Left ([id number]) AMB Shoulder Injection - Hip/Bursa Injection - 85619: Left ([id number])
[2025-08-12 13:33] VITALS: BMI 28.0
--- OUTSIDE RECORDS SUMMARY | 2025-08-12 18:57 | XMS_ITS | Clinical Summary ---
Author Organization [facility] Address [address] [place] [address] Care Team Providers Care Set Up Technician Name Role Phone Pcp, No Primary Care [...] - 2023-2 5 season) 2025 RSV Vaccine 50 years and old er and Patients (1 - 1-dose 75+ series) 02/09/2035 Hepatitis B Vaccines Aged Out No long er eligible based on patient's age to complete this topic Care Teams Set Up Technician Relationship Specialty Start Date End Date Pcp, No PCP - General General Medicine 01/06/16
--- OUTSIDE RECORDS SUMMARY | 2025-08-12 18:57 | XMS_ITS ---
Author Name [facility] Organization Unknown Care Team Organization Name Specialty Phone Email Start Date End Da te [facility] Termed, PROVIDER Primary Care 01/28/202304/23
--- OUTSIDE RECORDS SUMMARY | 2025-08-12 18:57 | XMS_ITS | Encounter Summary ---
Author Organization [facility] Address [address] [place] [id number] Care Team Providers Care Patient Intake Representative Name Role Phone Pcp, No Primary Care Provider Unavailabl e Encounter Details Date Type Department Care Team (Late st Contact Info) Description 01/11/2016 Scanned Document [address] [phone] Provider, Generic Social History Tobacco Use Types [...] on filedocumented in this encounter Care Teams Patient Intake Representative Relationship Specialty Start Date End Date Pcp, No PCP - General General Medicine 01/06/16 documented as of this encounter
== END 2025-08-12 13:51 | disposition home or self-care (01) ==
PROVIDERS: PCP Internal Medicine; Visit Provider Physician Assistant
DX: M17.12 Unilateral primary osteoarthritis, left knee (principal); M19.012 Primary osteoarthritis, left shoulder
CPT/HCPCS: 20610

== ENCOUNTER → 2025-08-12 13:32 | Outpatient (BNVA) | payer OTHER, SELFPAY | PROVIDERS: PCP Internal Medicine; Visit Provider Physician Assistant | DX: M17.12 Unilateral primary osteoarthritis, left knee (principal); M19.012 Primary osteoarthritis, left shoulder | CPT/HCPCS: 20610; J2003; J3301 ==